=== PATIENT | male | born 1950 | race Caucasian/White ===

== ENCOUNTER 2016-05-20 22:20 | Observation (INO) | payer OTHER ==
[~2016-05-20] VITALS: Ht 175.3 cm; Wt 71.3 kg
[~2016-05-20 22:20] MED LIST: ALBUTEROL SULF8.5 GM IH; BP MEDS; CARAFATE1 GM PO; CIPROFLOXACIN500 M1 PO; COLACE100 MG PO; Ecotrin PO; FEOSOL325 MG PO; LOPRESSOR25 MG PO; LOW DOSE ASPIRI81 M1 PO; Levaquin PO; METRONIDAZOLE500 MG PO; NITROSTAT0.4 MG SL; OXYCODONE HCL5 MG PO; PRAVACHOL40 MG PO; PRINIVIL20 MG PO; PROMETHAZINE HC25 M1 PO; PROTONIX40 MG PO; RESTORIL15 MG PO; SPIRIVA1 INHALATI IH; SUPPOSITORY1 EACH PR; ULTRAM50 MG PO; XANAX1 MG PO; ZOFRAN8 MG PO; Zestril,Prinivil PO
[2016-05-20 23:22] LABS: MCHC 29.4 G/DL (30.0-36.0); MCV 78.3 FL (86-99); MEAN PLAT.VOLUME 9.2 uM^3 (9.0-12.4); PLATELET COUNT 310 K/uL (156-360); RBC DIS.WIDTH-CV 16.6 % (11.8-14.6); RBC DIS.WIDTH-SD 46.9 % (39-53); RED BLOOD COUNT 3.96 M/uL (4.00-5.50)
[2016-05-20 23:33] LABS: INTER. NORMALIZED RATIO 1.1; PROTHROMBIN TIME 10.7 (9.2-11.2); PTT 27.3 (25-32)
[2016-05-20 23:42] LABS: TROP-I INTERPRETATION NEGATIVE; TROPONIN-I < 0.01 ng/mL (0.0-0.30)
[2016-05-21] MEDS ORDERED: COMBIVENT RESPIM4 GM IH (00:34)
[2016-05-21] MEDS ORDERED: BUSPAR5 MG PO (00:34)
[2016-05-21] MEDS ORDERED: CELEXA20 MG PO (00:34)
[2016-05-21] MEDS ORDERED: DUONEB 2.5-0.5 M3 ML AEROSOL (00:34)
[2016-05-21] MEDS ORDERED: FERROUS SULFAT325 MG PO (00:35)
[2016-05-21] MEDS ORDERED: NEURONTIN300 MG PO (00:35)
[2016-05-21] MEDS ORDERED: ISOSORBIDE MONO60 MG PO (00:35)
[2016-05-21] MEDS ORDERED: NITROSTAT0.4 MG SL (00:36)
[2016-05-21] MEDS ORDERED: PRINIVIL20 MG PO (00:36)
[2016-05-21] MEDS ORDERED: LIDOCAINE700 MG TD (00:36)
[2016-05-21] MEDS ORDERED: PRILOSEC20 MG PO (00:37)
[2016-05-21] MEDS ORDERED: PERCOCET 5/31 TABLET PO (00:37)
[2016-05-21] MEDS ORDERED: METAMUCIL FIBE3.4 GM PO (00:37)
[2016-05-21] MEDS ORDERED: RANEXA500 MG PO (00:37)
[2016-05-21] MEDS ORDERED: SENNA PLUS TAB1 EACH PO (00:38)
[2016-05-21] MEDS ORDERED: XARELTO20 MG PO (00:38)
[2016-05-21] MEDS ORDERED: OCEAN NASAL 0.645 ML BOTH NARES (00:39)
[2016-05-21] MEDS ORDERED: SUCRALFATE1 GM PO (00:39)
[2016-05-21 02:35] VITALS: BP 198/118
[2016-05-21 04:00] VITALS: BP 154/98
[2016-05-21 05:06] LABS: CHLORIDE 109 mEq/L (99-109); POTASSIUM 3.5 mEq/L (3.7-5.4); SODIUM 138 mEq/L (136-147)
[2016-05-21 05:08] LABS: GLUCOSE 89 mg/dL (70-99)
[2016-05-21 05:09] LABS: ANION GAP 8 MEQ/L (2-14)
[2016-05-21 05:10] LABS: TOTAL BILIRUBIN 0.2 mg/dL (0.0-1.0)
[2016-05-21 05:11] LABS: ALKALINE PHOSPHATASE 82 IU/L (3-129)
[2016-05-21 05:12] LABS: GFR ESTIMATE (CALCULATED) > 59 mL/min/
[2016-05-21 05:13] LABS: UREA NITROGEN (BUN) 25 mg/dL (9-23)
[2016-05-21 05:15] LABS: LIPASE 15 U/L (1.0-51.0)
[2016-05-21 05:56] LABS: HEMATOCRIT 29.5 % (38.0-50.0); MCHC 29.2 G/DL (30.0-36.0); MCV 78.9 FL (86-99); MEAN PLAT.VOLUME 9.1 uM^3 (9.0-12.4); PLATELET COUNT 281 K/uL (156-360); RBC DIS.WIDTH-CV 16.8 % (11.8-14.6); RBC DIS.WIDTH-SD 48.2 % (39-53); RED BLOOD COUNT 3.74 M/uL (4.00-5.50)
[2016-05-21 06:16] LABS: ALKALINE PHOSPHATASE 75 IU/L (3-129); ANION GAP 8 MEQ/L (2-14); CHLORIDE 110 MEQ/L (99-109); GFR ESTIMATE (CALCULATED) > 59 mL/min/; GLUCOSE 88 mg/dL (70-99); IRON 27 MCG/DL (35-150); POTASSIUM 3.6 MEQ/L (3.7-5.4); SAMPLE HEMOLYSIS CHECK 0; SAMPLE ICTERIC CHECK 0; SAMPLE LIPEMIA CHECK 0; SODIUM 140 MEQ/L (136-147); TOTAL BILIRUBIN 0.3 MG/DL (0.0-1.0); TROP-I INTERPRETATION NEGATIVE; TROPONIN-I < 0.01 ng/mL (0.0-0.30); UREA NITROGEN (BUN) 23 mg/dL (9-23)
[2016-05-21 07:42] LABS: FERRITIN 7 NG/ML (22-322)
[2016-05-21 08:45] VITALS: BP 127/71
[2016-05-21 13:25] VITALS: BP 102/59
[2016-05-21 13:28] LABS: TROP-I INTERPRETATION NEGATIVE; TROPONIN-I < 0.01 ng/mL (0.0-0.30)
== END 2016-05-21 16:53 | disposition home or self-care (01) ==
LOC: EME 22:20 → EDOF 05-21 01:15 → 5WEST 05-21 02:13
PROVIDERS: Emergency Medicine; Internal Medicine
DX: R07.89 Other chest pain (principal); R10.13 Epigastric pain; J44.9 Chronic obstructive pulmonary disease, unspecified; R21 Rash and other nonspecific skin eruption; K21.9 Gastro-esophageal reflux disease without esophagitis; I10 Essential (primary) hypertension; I25.10 Atherosclerotic heart disease of native coronary artery without angina pectoris; D50.9 Iron deficiency anemia, unspecified; F17.210 Nicotine dependence, cigarettes, uncomplicated; I69.351 Hemiplegia and hemiparesis following cerebral infarction affecting right dominant side; Z86.711 Personal history of pulmonary embolism; Z86.718 Personal history of other venous thrombosis and embolism; Z95.5 Presence of coronary angioplasty implant and graft; Z95.0 Presence of cardiac pacemaker; Z79.01 Long term (current) use of anticoagulants
CPT/HCPCS: 71010; 80053; 81003; 82728; 83540; 83690; 84466; 84484; 85027; 85610; 85730; 86850; 86900; 86901; 93005; 94640; 94640 76; 94799; 99202; 99281; 99284; G0378; J2270; J2405; J7030